=== PATIENT | female | born 1955 | race Caucasian/White ===

== ENCOUNTER 2016-09-02 12:33 | Emergency (ER) | payer OTHER ==
[~2016-09-02] VITALS: Ht 167.6 cm; Wt 142.9 kg
[~2016-09-02 12:33] MED LIST: COLCRYS0.6 M1 PO; CRESTOR20 MG PO; DOXYCYCLINE HY100 MG PO; GEMFIBROZIL600 M1 OR; K-DUR 20MEQ TA20 MEQ PO; METOPROLOL SUCC50 M2 PO; NORCO 325 MG-101 TAB PO; POTASSIUM CHLO10 ME1 PO; SALSALATE750 MG OR; SYNTHROID0.15 M1 NG; VERAPAMIL HCL240 M1 PO; VITAMIN D1000 IU PO
--- OUTSIDE RECORDS SUMMARY | 2016-09-02 12:38 | External Medical Summary Rpt ---
Author Author NAT Aguilar, NAT Aguilar Organization [employer] Address Unknown Phone Unavailable
--- OUTSIDE RECORDS SUMMARY | 2016-09-02 12:38 | External Medical Summary Rpt ---
Author Author MIGUE [place] Organization [facility] Address Unknown Phone Unavailable Care Team Providers Care Caustics Loader Name Role Phone Gwen WHALEN PCP [phone] Encounter MIGUE THOMASON [id number] Date(s): 03/12/16 - 04/02/16 [facility] [address] [place] [address] Discharge Diagnosis: Weakness Discharge Disposition: IP Self Care / Home Attending Physician: RADHA MONTIEL MD Admitting Physician: RADHA MONTIEL MD Referring Physician: RADHA MONTIEL MD Reason for Visit UNILATERAL PRIMARY OSTEOARTHRITIS, RIGHT HIP Vital Signs Most recent 1 2 3 to oldest [Reference Range]: Temperature Oral Oral Oral Source (04/02/16 3:39 PM) (04/02/16 7:00 AM) (04/02/16 3:52 AM) Temperature Fahrenheit Fahrenheit Fahrenheit Mode (04/02/16 3:39 PM) (04/02/16 7:00 AM) (04/02/16 3:52 AM) Temperature, 98.1 Deg F 98.5 Deg F 98.3 Deg F Fahrenheit (04/02/16 3:39 PM) (04/02/16 7:00 AM) (04/02/16 3:52 AM) [96.8-99.7 Deg F] Clinical 36.7 Deg C 36.9 Deg C 36.8 Deg C Temperature, (04/02/16 3:39 PM) (04/02/16 7:00 AM) (04/02/16 3:52 AM) C Pulse Method Non-Invasive BP Device (04/01/16 9:45 AM) Heart Rate, 90 bpm (04/01/16 Apical 10:36 PM) [60-100 bpm] Peripheral 77 bpm 68 bpm Pulse Rate (04/01/16 9:45 AM) (03/24/16 2:57 PM) [60-100 bpm] Heart Rate 64 bpm 70 bpm 80 bpm Monitored (04/02/16 3:39 PM) (04/02/16 7:00 AM) (04/02/16 3:52 AM) [60-100 bpm] Respiratory 16 Breaths/Min 15 Breaths/Min 16 Breaths/Min Rate [14-20 (04/02/16 3:39 PM) (04/02/16 7:00 AM) (04/02/16 3:52 AM) Breaths/Min] Blood Arm, left upper Pressure (04/01/16 9:45 AM) Location Blood Non-Invasive BP Pressure Device (04/01/16 Source 9:45 AM) Blood Sitting Pressure (04/01/16 9:45 AM) Position Blood 133/65 mmHg 144/65 mmHg 115/75 mmHg Pressure (04/02/16 3:39 PM) *HI* (04/02/16 3:52 AM) [90-140/60-9 (04/02/16 7:00 AM) 0 mmHg] Mean 84 93 (04/01/16 11:42 85 Arterial (04/02/16 3:52 AM) PM) (04/01/16 8:30 PM) Pressure (MAP)-BMDI Oxygen 96 % 96 % 97 % Saturation (04/02/16 3:39 PM) (04/02/16 7:00 AM) (04/02/16 3:52 AM) [94-100 %] Oxygen Room air Nasal cannula Nasal cannula Therapy Mode (04/02/16 7:00 AM) (04/01/16 3:20 PM) (04/01/16 2:35 PM) Oxygen Flow 2 Liter/Min 3 Liter/Min 2 Liter/Min Rate (04/01/16 3:20 PM) (04/01/16 2:35 PM) (04/01/16 2:20 PM) Problem List Condition Effective Status Health Informant Dates Status Right hip Active pain(Confirm ed) DDD Active patient (degenerativ e disc disease), lumbar(Confi rmed) Gout(Confirm Active ed) HTN Active (hypertensio n)(Confirmed ) Hypothyroidi Active sm(Confirmed ) Lower back Active patient pain(Confirm ed) H/O Active patient Depression(C onfirmed) Obesity(Conf Active patient irmed) Osteoarthrit Active is(Confirmed ) Frequent Active UTI(Confirme d) Snores(Confi Active patient rmed) Allergies, Adverse Reactions, Alerts Substance Reaction Severity Status NSAIDs Active statins Muscle weakness-general Active sulfa drugs Hives Active Medications allopurinol (allopurinol 300 mg oral tablet) 1 Tab, Oral, Every Day, Refills: 0 aspirin 81 mg, Oral, Every Day, Refills: 0 cholecalciferol (Vitamin D3 1000 intl units oral tablet)3 Tab, Oral, Every Day, Refills: 0 cinnamon 1,000 mg, Oral, Every Day, Refills: 0 colchicine (colchicine 0.6 mg oral capsule) 1 Cap, Oral, Every Day, Refills: 0 cranberry (Cranberry oral tablet) 1 Tab, Oral, Every Day, Refills: 0 cyanocobalamin (Vitamin B12) 2,500 mcg, Oral, Every Day, Refills: 0 docusate (Colace 100 mg oral capsule) 1 Cap, Oral, Two Times A Day, Refills: 0 hydrochlorothiazide-spironolactone (hydrochlorothiazide-spironolactone 25 mg-25 mg oral tablet)2 Tab, Oral, Every Day, Refills: 0 levothyroxine (Synthroid 125 mcg (0.125 mg) oral tablet)1 Tab, Oral, Every Day, Refills: 0 metoprolol (Metoprolol Tartrate 50 mg oral tablet)1.5 Tab, Oral, At Bedtime, Refills: 0 morphine (MS Contin)15 mg, Oral, Interval Every 12 Hours, Refills: 0 nitrofurantoin (Macrobid 100 mg oral capsule) 1 Cap, Oral, Two Times A Day potassium chloride (potassium chloride 20 mEq oral tablet, extended release)1 Tab, Oral, Two Times A Day, Refills: 0 salsalate (salsalate 750 mg oral tablet) 2 Tab, Oral, Two Times A Day, Refills: 0 ubiquinone (CoQ10) 100 mg, Oral, Every Day, Refills: 0 verapamil (verapamil 240 mg/24 hours oral tablet, extended release)2 Tab, Oral, At Bedtime, Refills: 0 Results GENERAL CHEMISTRY Most recent 1 2 3 to oldest [Reference Range]: Sodium Level 141 mmol/L 142 mmol/L [136-145 (04/02/16 5:48 AM) (04/01/16 4:27 PM) mmol/L] Potassium 4.5 mmol/L 4.2 mmol/L Level (04/02/16 5:48 AM) (04/01/16 4:27 PM) [3.5-5.1 mmol/L] Chloride 105 mmol/L 104 mmol/L Level (04/02/16 5:48 AM) (04/01/16 4:27 PM) [98-107 mmol/L] Carbon 23 mmol/L 25 mmol/L Dioxide (04/02/16 5:48 AM) (04/01/16 4:27 PM) Level [21-32 mmol/L] Anion Gap 18 17 (04/01/16 4:27 [9-20] (04/02/16 5:48 AM) PM) Glucose 151 mg/dL 178 mg/dL Level *HI* *HI*(04/01/16 4:27 [74-106 (04/02/16 5:48 AM) PM) mg/dL] Blood Urea 27 mg/dL 22 mg/dL Nitrogen *HI* *HI*(04/01/16 4:27 [7-18 mg/dL] (04/02/16 5:48 AM) PM) Creatinine 1.53 mg/dL 1.66 mg/dL 1.67 mg/dL Level *HI* *HI* *HI*(04/01/16 4:27 [0.55-1.02 (04/02/16 2:02 PM) (04/02/16 5:48 AM) PM) mg/dL] eGFR 42 mL/min/1.73m2 38 mL/min/1.73m2 38 mL/min/1.73m2 [>=60 *LOW* *LOW* *LOW*(04/01/16 mL/min/1.73m (04/02/16 2:02 PM) (04/02/16 5:48 AM) 4:27 PM) 2] eGFR 34 mL/min/1.73m2 31 mL/min/1.73m2 31 mL/min/1.73m2 NonAfrican *LOW* *LOW* *LOW*(04/01/16 [>=60 (04/02/16 2:02 PM) (04/02/16 5:48 AM) 4:27 PM) mL/min/1.73m 2] Bun/Creatini 16.3 13.2 (04/01/16 ne (04/02/16 5:48 AM) 4:27 PM) [8.0-20.0] Calcium 8.6 mg/dL 8.9 mg/dL Level (04/02/16 5:48 AM) (04/01/16 4:27 PM) [8.5-10.1 mg/dL] HEMATOLOGY Most recent 1 2 3 to oldest [Reference Range]: Hgb 13.2 Gram/dL 15.1 Gram/dL [11.2-15.7 (04/02/16 5:48 AM) (04/01/16 1:57 PM) Gram/dL] Hct 39.3 % 44.5 % (04/01/16 [34.1-44.9 (04/02/16 5:48 AM) 1:57 PM) %] URINALYSIS Most recent 1 2 3 to oldest [Reference Range]: Urine Type U CleanCatch (03/24/16 2:55 PM) Urine Type. U CleanCatch *NA*(04/01/16 9:26 AM) Urine Color DK YELLOW Yellow *NA*(04/01/16 9:26 *NA*(03/24/16 2:55 AM) PM) Urine Cloudy Cloudy Appearance *ABN*(04/01/16 *ABN*(03/24/16 9:26 AM) 2:55 PM) Urine 1.018 (04/01/16 1.016 (03/24/16 Specific 9:26 AM) 2:55 PM) [place] [1.005-1.030 ] Urine pH 5.0 *LOW*(04/01/16 5.5 *LOW*(03/24/16 Dipstick 9:26 AM) 2:55 PM) [6.0-8.0] (04/01/16 9:26 AM) (03/24/16 2:55 PM) Urine Moderate Moderate Leukocyte *ABN*(04/01/16 *ABN*(03/24/16 Esterase 9:26 AM) 2:55 PM) [Negative] Urine Negative (04/01/16 Negative (03/24/16 Nitrite 9:26 AM) 2:55 PM) [Negative] Urine Trace Negative (03/24/16 Protein *ABN*(04/01/16 2:55 PM) Dipstick 9:26 AM) [Negative] Urine Negative (04/01/16 Negative (03/24/16 Glucose 9:26 AM) 2:55 PM) Dipstick [Negative] Urine Negative (04/01/16 Negative (03/24/16 Ketones 9:26 AM) 2:55 PM) Dipstick [Negative] Urine 0.2 EU/dL 0.2 EU/dL Urobilinogen (04/01/16 9:26 AM) (03/24/16 2:55 PM) Dipstick Urine Negative (04/01/16 Negative (03/24/16 Bilirubin 9:26 AM) 2:55 PM) Dipstick [Negative] Urine Blood Negative (04/01/16 Negative (03/24/16 Dipstick 9:26 AM) 2:55 PM) [Negative] Ur RBC [None None Seen Seen] (03/24/16 2:55 PM) Ur WBC [None 50-100 /HPF 20-50 /HPF Seen /HPF] *ABN*(04/01/16 *ABN*(03/24/16 9:26 AM) 2:55 PM) Ur WBC Present Clumps *ABN*(04/01/16 9:26 AM) Ur Bacteria 4+ *ABN*(04/01/16 2+ *ABN*(03/24/16 [None Seen] 9:26 AM) 2:55 PM) (04/01/16 9:26 AM) (03/24/16 2:55 PM) Ur 10-20 /HPF Epithelial *ABN*(03/24/16 Cells [None 2:55 PM) Seen /HPF] Ur Squamous 10-20 /HPF Epithelial *ABN*(04/01/16 Cells 9:26 AM) Ur Hyaline 5-10 /LPF Casts *ABN*(04/01/16 9:26 AM) Ur Yeast Trace (03/24/16 2:55 PM) Ur Yeast, 1+ *ABN*(04/01/16 Hyphae 9:26 AM) (04/01/16 9:26 AM) BLOOD BANK Most recent 1 2 3 to oldest [Reference Range]: ABO/Rh O POS *Unknown*(04/01/16 10:20 AM) ABO/Rh O POS Repeat *Unknown*(04/01/16 10:21 AM) Antibody Negative ABSC Screen (04/01/16 10:20 (Tube) AM) Microbiology Reports TEST: Urine Culture STATUS: Order in Progress BODY SITE: SOURCE: Urine, Clean Catch COLLECTED DATE/TIME: 04/01/16 9:26 AMPRELIMINARY REPORTNo growth Immunizations No data available for this section Procedures Procedure Date Related Body Site Diagnosis appy Social History Social History Response Type Smoking Status Never smoker Assessment and Plan Extracted from: Title: YZ Progress Author: RADHA MONTIEL, Date: 04/02/16 Note MD Subjective Chief complaint. better today had PT pain is controlled not in distress Health StatusAllergies:Allergic Reactions (Selected)Severity Not DocumentedNSAIDs- No reactions were documented.Statins- Muscle weakness-general.Sulfa drugs- Hives.,Allergies (3) ActiveReactionNSAIDsNone DocumentedstatinsMuscle weakness-generalsulfa drugsHivesCurrent medications: (Selected)Inpatient MedicationsOrderedBenadryl: 12.5 mg, Oral, At Bedtime, PRN: InsomniaBenadryl: 25 mg, Oral, Q4H, PRN: ItchingCoenzyme Q10: 100 mg, Oral, At BedtimeColace: 100 mg, Oral, BIDDextrose 5% in Lactated Ringers Injection 1,000 mL: 125 mL/Hr, IntraVENousDilaudid: 0.5 mg, IV Push, Q4H, PRN: Pain (Severe 7-10)DuoNeb 0.5 mg-2.5 mg/3 mL inhalation solution: 3 mL, Nebulized Inhalation, Q6H, PRN: Shortness of BreathMS Contin: 15 mg, Oral, C09AHvbUzuhxqyn: 100 mg, Oral, BIDProtonix: 40 mg, Oral, DailySenokot S: 2 Tab, Oral, At BedtimeSynthroid: 125 mcg, Oral, DailyTylenol: 1,000 mg, Oral, D1JHqfJmrvtkd: 650 mg, Oral, Q4H, PRN: Other (See Comment)Vitamin B12: 2,500 mcg, Oral, DailyVitamin D3: 3,000 Units, Oral, DailyZofran: 4 mg, IV Push, Q4H, PRN: NauseaZofran: 4 mg, IV Push, Q8H, PRN: Nauseaallopurinol: 300 mg, Oral, Dailyaspirin: 81 mg, Oral, BIDbisacodyl: 10 mg, Rectal, 1-Time, PRN: Constipationcolchicine: 0.6 mg, Oral, DailyhydrALAZINE: 10 mg, IV Push, Q6H, PRN: Hypertensionhydrochlorothiazide: 25 mg, Oral, Dailymetoclopramide: 5 mg, IV Push, Q4H, PRN: Nausea/Vomitingmetoprolol tartrate: 75 mg, Oral, At Bedtimemultivitamin: 1 Tab, Oral, Dailynaloxone: 0.1 mg, IV Push, Q5Min, PRN: OversedationoxyCODONE: 10 mg, Oral, Q4H, PRN: Pain (Severe 7-10)oxyCODONE: 5 mg, Oral, Q4H, PRN: Pain (Moderate 4-6)potassium chloride 20 mEq oral tablet, extended release: 20 mEq, 1 Tab, Oral, BIDsenna: 8.6 mg, Oral, At Bedtime, PRN: Constipationspironolactone: 25 mg, Oral, Dailyverapamil: 480 mg, Oral, At BedtimeDocumented LtuffaixdaeJkuescuaqyMwA17: 100 mg, Oral, Daily, 0 Refill(s)Colace 100 mg oral capsule: 1 Cap, Oral, BID, 0 Refill(s)Cranberry oral tablet: 1 Tab, Oral, Daily, 0 Refill(s)MS Contin: 15 mg, Oral, [id number], 0 Refill(s)Macrobid 100 mg oral capsule: 1 Cap, Oral, BIDMetoprolol Tartrate 50 mg oral tablet: 1.5 Tab, Oral, At Bedtime, 0 Refill(s)Synthroid 125 mcg (0.125 mg) oral tablet: 1 Tab, Oral, Daily, 0 Refill(s)Vitamin B12: 2,500 mcg, Oral, Daily, 0 Refill(s)Vitamin D3 1000 intl units oral tablet: 3 Tab, Oral, Daily, 0 Refill(s)allopurinol 300 mg oral tablet: 1 Tab, Oral, Daily, 0 Refill(s)aspirin: 81 mg, Oral, Daily, 0 Refill(s)cinnamon: 1,000 mg, Oral, Daily, 0 Refill(s)colchicine 0.6 mg oral capsule: 1 Cap, Oral, Daily, 0 Refill(s)hydrochlorothiazide-spironolactone 25 mg-25 mg oral tablet: 2 Tab, Oral, Daily, 0 Refill(s)potassium chloride 20 mEq oral tablet, extended release: 1 Tab, Oral, BID, 0 Refill(s)salsalate 750 mg oral tablet: 2 Tab, Oral, BID, 0 Refill(s)verapamil 240 mg/24 hours oral tablet, extended release: 2 Tab, Oral, At Bedtime, 0 Refill(s),Home Medications (17) Activeallopurinol 300 mg oral tablet 300 mg = 1 Tab, Oral, Dailyaspirin 81 mg, Oral, Dailycinnamon 1,000 mg, Oral, DailyColace 100 mg oral capsule 100 mg = 1 Cap, Oral, BIDcolchicine 0.6 mg oral capsule 0.6 mg = 1 Cap, Oral, YdjixFtI06 100 mg, Oral, DailyCranberry oral tablet 1 Tab, Oral, Dailyhydrochlorothiazide-spironolactone 25 mg-25 mg oral tablet 2 Tab, Oral, DailyMacrobid 100 mg oral capsule 100 mg = 1 Cap, Oral, BIDMetoprolol Tartrate 50 mg oral tablet 75 mg = 1.5 Tab, Oral, At BedtimeMS Contin 15 mg = 1 Tab, Oral, U18VAghperqsxhdj chloride 20 mEq oral tablet, extended release 20 mEq = 1 Tab, Oral, BIDsalsalate 750 mg oral tablet 1,500 mg = 2 Tab, Oral, BIDSynthroid 125 mcg (0.125 mg) oral tablet 125 mcg = 1 Tab, Oral, Dailyverapamil 240 mg/24 hours oral tablet, extended release 2 Tab, Oral, At BedtimeVitamin B12 2,500 mcg, Oral, DailyVitamin D3 1000 intl units oral tablet 3,000 Int Units = 3 Tab, Oral, Daily,Medications (34) ActiveScheduled: (19)acetaminophen 500 mg tab 1,000 mg 2 Tab, Oral, I5ZJegeflyakwiihr 300 mg tab 300 mg 1 Tab, Oral, Dailyaspirin EC 81 mg tab 81 mg 1 Tab, Oral, BIDcholecalciferol 1,000 int unit tab 3,000 Units 3 Tab, Oral, Dailycolchicine 0.6 mg tab 0.6 mg 1 Tab, Oral, Dailycyanocobalamin 1,000 mcg tab 2,500 mcg 2.5 Tab, Oral, Dailydocusate sodium 100 mg cap 100 mg 1 Cap, Oral, BIDhydrochlorothiazide 25 mg tab 25 mg 1 Tab, Oral, Dailylevothyroxine 125 mcg tab 125 mcg 1 Tab, Oral, Dailymetoprolol tartrate 25 mg tab 75 mg 3 Tab, Oral, At Bedtimemorphine SR 15 mg tab 15 mg 1 Tab, Oral, R70WXbgjqutsnsk vitamin (Thera) tab 1 Tab, Oral, Dailynitrofurantoin macro-mono 100 mg cap 100 mg 1 Cap, Oral, BIDpantoprazole EC 40 mg tab 40 mg 1 Tab, Oral, Dailypotassium chloride CR 20 mEq tab 20 mEq 1 Tab, Oral, BIDsenna/docusate 8.6/50 mg tab 2 Tab, Oral, At Bedtimespironolactone 25 mg tab 25 mg 1 Tab, Oral, Dailyubiquinone 50 mg Cap 100 mg 2 Cap, Oral, At Bedtimeverapamil ER24 120 mg cap 480 mg 4 Cap, Oral, At BedtimeContinuous: (1)D5/LR 1,000 mL 1,000 mL, IntraVENous, 125 mL/HrPRN: (14)acetaminophen 325 mg tab 650 mg 2 Tab, Oral, P2Ucmdrddxav-egzotntzjpu inh 3 mL 3 mL, Nebulized Inhalation, O0Bgvxlbhqlh 10 mg supp 10 mg 1 Supp, Rectal, 1-TimediphenhydrAMINE 25 mg tab 25 mg 1 Tab, Oral, Z1ZrzpowfprdjKVPXB 25 mg tab 12.5 mg 0.5 Tab, Oral, At BedtimehydrALAZINE 20 mg/1 mL inj 10 mg 0.5 mL, IV Push, T4IGNGJVfmqdqbjr 1 mg/1 mL inj 0.5 mg 0.5 mL, IV Push, A4Zwjxfxviizjwhjb 10 mg/2 mL inj 5 mg 1 mL, IV Push, S4Buibjlfiy 0.4 mg/1 mL inj 0.1 mg 0.25 mL, IV Push, I9Zavsbdlccvdtqb 4 mg/2 mL inj 4 mg 2 mL, IV Push, S6Sehhxgwlwyht 4 mg/2 mL inj 4 mg 2 mL, IV Push, H7AczxRLSCGV 5 mg tab 5 mg 1 Tab, Oral, R3QgdlGTBSSM 5 mg tab 10 mg 2 Tab, Oral, U5Ncojth 8.6 mg tab 8.6 mg 1 Tab, Oral, At BedtimeProblem list:MedicalFrequent UTI / SNOMED CT 755360357 / ConfirmedOsteoarthritis / SNOMED CT 9994981848 / ConfirmedHypothyroidism / SNOMED CT 649561601 / ConfirmedHTN (hypertension) / SNOMED CT 3447877085 / ConfirmedGout / SNOMED CT 229988525 / ConfirmedRight hip pain / SNOMED CT 7076057335 / Confirmed,Active Problems (11)DDD (degenerative disc disease), lumbar Frequent UTI Gout H/O Depression HTN (hypertension) Hypothyroidism Lower back pain Obesity Osteoarthritis Right hip pain Snores colchicine 0.6 mg tab 0.6 mg 1 Tab, Oral, Daily cyanocobalamin 1,000 mcg tab 2,500 mcg 2.5 Tab, Oral, Daily docusate sodium 100 mg cap 100 mg 1 Cap, Oral, BID hydrochlorothiazide 25 mg tab 25 mg 1 Tab, Oral, Daily levothyroxine 125 mcg tab 125 mcg 1 Tab, Oral, Daily metoprolol tartrate 25 mg tab 75 mg 3 Tab, Oral, At Bedtime morphine SR 15 mg tab 15 mg 1 Tab, Oral, U43XVob multiple vitamin (Thera) tab 1 Tab, Oral, Daily nitrofurantoin macro-mono 100 mg cap 100 mg 1 Cap, Oral, BID pantoprazole EC 40 mg tab 40 mg 1 Tab, Oral, Daily potassium chloride CR 20 mEq tab 20 mEq 1 Tab, Oral, BID senna/docusate 8.6/50 mg tab 2 Tab, Oral, At Bedtime spironolactone 25 mg tab 25 mg 1 Tab, Oral, Daily ubiquinone 50 mg Cap 100 mg 2 Cap, Oral, At Bedtime verapamil ER24 120 mg cap 480 mg 4 Cap, Oral, At Bedtime Continuous: (1) D5/LR 1,000 mL 1,000 mL, IntraVENous, 125 mL/Hr PRN: (14) acetaminophen 325 mg tab 650 mg 2 Tab, Oral, Q4H albuterol-ipratropium inh 3 mL 3 mL, Nebulized Inhalation, Q6H bisacodyl 10 mg supp 10 mg 1 Supp, Rectal, 1-Time diphenhydrAMINE 25 mg tab 25 mg 1 Tab, Oral, Q4H diphenhydrAMINE 25 mg tab 12.5 mg 0.5 Tab, Oral, At Bedtime hydrALAZINE 20 mg/1 mL inj 10 mg 0.5 mL, IV Push, Q6H HYDROmorphone 1 mg/1 mL inj 0.5 mg 0.5 mL, IV Push, Q4H metoclopramide 10 mg/2 mL inj 5 mg 1 mL, IV Push, Q4H naloxone 0.4 mg/1 mL inj 0.1 mg 0.25 mL, IV Push, Q5Min ondansetron 4 mg/2 mL inj 4 mg 2 mL, IV Push, Q8H ondansetron 4 mg/2 mL inj 4 mg 2 mL, IV Push, Q4H oxyCODONE 5 mg tab 5 mg 1 Tab, Oral, Q4H oxyCODONE 5 mg tab 10 mg 2 Tab, Oral, Q4H senna 8.6 mg tab 8.6 mg 1 Tab, Oral, At Bedtime Problem list: Medical Frequent UTI / SNOMED CT 401887040 / Confirmed Osteoarthritis / SNOMED CT 6223854056 / Confirmed Hypothyroidism / SNOMED CT 162120396 / Confirmed HTN (hypertension) / SNOMED CT 4766888007 / Confirmed Gout / SNOMED CT 049132181 / Confirmed Right hip pain / SNOMED CT 1672947805 / Confirmed, Active Problems (11) DDD (degenerative disc disease), lumbar Frequent UTI Gout H/O Depression HTN (hypertension) Hypothyroidism Lower back pain Obesity Osteoarthritis Right hip pain Snores ObjectiveVS/MeasurementsVitals Signs (last 24 hrs) Last Charted Minimum MaximumTemp 98.5 (APR 02 07:00)97.5 (APR 01 15:20)98.4 (APR 01 13:44)Apical HR 90 (APR 01 22:36)90 (APR 01 22:36)90 (APR 01 22:36)Mon HR 70 (APR 02 07:00)70 (APR 02 07:00)115 (APR 01 13:44)Resp Rate 15 (APR 02 07:00)15 (APR 01 14:05)18 (APR 01 13:44)SBP H 144 (APR 02 07:00)115 (APR 02 03:52)H 192 (APR 01 13:50)DBP 65 (APR 02 07:00)65 (APR 02 07:00)90 (APR 01 13:50)MAP 84 (APR 02 03:52)84 (APR 02 03:52)127 (APR 01 13:50)SpO2 96 (APR 02 07:00)L 92 (APR 01 14:10)97 (APR 01 23:42)General: Alert and oriented, No acute distress.Eye: Pupils are equal, round and reactive to light, Normal conjunctiva, Vision unchanged.HENT: Normocephalic, Normal hearing, Oral mucosa is moist.Neck: Supple, Non-tender.Respiratory: Lungs are clear to auscultation, Respirations are non-labored, Breath sounds are equal.Cardiovascular: Normal rate, Regular rhythm.Gastrointestinal: Soft, Non-tender, Non-distended.Genitourinary: No costovertebral angle tenderness.Musculoskeletal: No swelling, No deformity.Integumentary: Warm, Dry.Neurologic: Alert, Oriented, Normal sensory, Cranial Nerves II-XII are grossly intact.Psychiatric: Cooperative, Appropriate mood & affect, Normal judgment. Neurologic: Alert, Oriented, Normal sensory, Cranial Nerves II-XII are grossly intact. Psychiatric: Cooperative, Appropriate mood & affect, Normal judgment. Results Review APR 02 05:48 141 | 105 | H 27 / H 151 4.5 | 23 | H 1.66 \\ APR 02 05:48 141 | 105 | H 27 / H 151 4.5 | 23 | H 1.66 \\ Impression and Plan 1. Status post right hip replacement. surgery done. Pain is controlled. 2. History of recurrent urinary tract infection. Urine culture ordered. We will wait for culture results. 3. Hypertension. hydralazine as needed. 4. History of hypothyroidism, on levothyroxine, to be continued. 5. Gastrointestinal prophylaxis, Protonix. 6. Deep venous thrombosis prophylaxis, compression boot. plan Home today Follow up outpatient time spent 40 min Extracted from: Title: Progress/SOAP Author: JUAN, Date: 04/02/16 Note BRIAN, CRISTINE Assessment/Plan Unilateral primary osteoarthritis, right hipM16.11, Unilateral primary osteoarthritis, right hipM16.11 1. Increase fluids, recheck Cr. if trending towards baseline ok to discharge home today 2. 25lbs WB on operative leg 3. stressed the importance of laying flat with belly off of incision to help with healing Hospital Discharge Instructions Patient EducationTotal Hip Replacement, Care After, Ecoh-vg-Jovs Total Hip Replacement, Pdqt-ky-Iiqw"
--- OUTSIDE RECORDS SUMMARY | 2016-09-02 12:38 | External Medical Summary Rpt ---
Demographics Preferred Language Citizen [place] Marital Status Unknown Confucianism Affiliation Unknown Race Unknown Ethnic Group Unknown Author Author , Organization [employer] Address Unknown Phone Unavailable Purpose Continuity of Care Document - through 2016 Immunization No patient found.
--- OUTSIDE RECORDS SUMMARY | 2016-09-02 12:38 | External Medical Summary Rpt ---
Author Author MIGUE [place] Organization [facility] Address Unknown Phone Unavailable Care Team Providers Care Felt Pad Cutter Name Role Phone Gwen WHALEN PCP [phone] Encounter MIGUE THOMASON [id number] Date(s): 03/12/16 - 04/02/16 [facility] [address] [place] [place] [address]- Discharge Diagnosis: Weakness Discharge Disposition: IP Self [...] 1.016 (03/24/16 Specific 9:26 AM) 2:55 PM) [place] [1.005-1.030 ] Urine pH 5.0 *LOW*(04/01/16 5.5 [...] Shortness of BreathMS Contin: 15 mg, Oral, F25TIdgKiyxthfj: 100 mg, Oral, BIDProtonix: 40 mg, Oral, DailySenokot S: 2 Tab, Oral, At BedtimeSynthroid: 125 mcg, Oral, DailyTylenol: 1,000 mg, Oral, D1VUqoTngafdj: 650 mg, Oral, Q4H, PRN: Other (See [...] Oral, Dailyverapamil: 480 mg, Oral, At BedtimeDocumented TjwyetooagnAuliceghhmUnU47: 100 mg, Oral, Daily, 0 Refill(s)Colace 100 mg oral capsule: 1 Cap, Oral, BID, 0 Refill(s)Cranberry oral tablet: 1 Tab, Oral, Daily, 0 Refill(s)MS Contin: 15 mg, Oral, W56CIsq, 0 Refill(s)Macrobid 100 mg oral capsule: 1 [...] capsule 0.6 mg = 1 Cap, Oral, FkdqmQkP59 100 mg, Oral, DailyCranberry oral tablet 1 Tab, Oral, Dailyhydrochlorothiazide-spironolactone 25 mg-25 mg oral tablet 2 Tab, Oral, DailyMacrobid 100 mg oral capsule 100 mg = 1 Cap, Oral, BIDMetoprolol Tartrate 50 mg oral tablet 75 mg = 1.5 Tab, Oral, At BedtimeMS Contin 15 mg = 1 Tab, Oral, C61GJtoxzoslqlkn chloride 20 mEq oral tablet, extended release [...] mg tab 1,000 mg 2 Tab, Oral, T2FZbsmjtwngzbmeu 300 mg tab 300 mg 1 Tab, [...] mg tab 15 mg 1 Tab, Oral, H18AUxlzetqcihb vitamin (Thera) tab 1 Tab, Oral, Dailynitrofurantoin [...] mg tab 650 mg 2 Tab, Oral, Z1Qvflyebntx-quarbljiurm inh 3 mL 3 mL, Nebulized Inhalation, E9Ollyxmgfeg 10 mg supp 10 mg 1 Supp, Rectal, 1-TimediphenhydrAMINE 25 mg tab 25 mg 1 Tab, Oral, W2TgeoypkvrzdIUXRV 25 mg tab 12.5 mg 0.5 Tab, Oral, At BedtimehydrALAZINE 20 mg/1 mL inj 10 mg 0.5 mL, IV Push, P6PCIWCPetusspqq 1 mg/1 mL inj 0.5 mg 0.5 mL, IV Push, L7Dkettieocdshour 10 mg/2 mL inj 5 mg 1 mL, IV Push, B4Zuykgkvhk 0.4 mg/1 mL inj 0.1 mg 0.25 mL, IV Push, H5Wajxaovwmqbsbh 4 mg/2 mL inj 4 mg 2 mL, IV Push, I3Pqilbpucvrmw 4 mg/2 mL inj 4 mg 2 mL, IV Push, A9KjmdPAXSLY 5 mg tab 5 mg 1 Tab, Oral, W7SuatTSKOWJ 5 mg tab 10 mg 2 Tab, Oral, M8Jsntms 8.6 mg tab 8.6 mg 1 Tab, Oral, At BedtimeProblem list:MedicalFrequent UTI / SNOMED CT 548150653 / ConfirmedOsteoarthritis / SNOMED CT 9719550418 / ConfirmedHypothyroidism / SNOMED CT 846665702 / ConfirmedHTN (hypertension) / SNOMED CT 4949841653 / ConfirmedGout / SNOMED CT 105835388 / ConfirmedRight hip pain / SNOMED CT 3043638979 / Confirmed,Active Problems (11)DDD (degenerative disc disease), [...] mg tab 15 mg 1 Tab, Oral, U28IYwr multiple vitamin (Thera) tab 1 Tab, Oral, [...] list: Medical Frequent UTI / SNOMED CT 526655232 / Confirmed Osteoarthritis / SNOMED CT 3352522003 / Confirmed Hypothyroidism / SNOMED CT 387485471 / Confirmed HTN (hypertension) / SNOMED CT 2711053091 / Confirmed Gout / SNOMED CT 772411024 / Confirmed Right hip pain / SNOMED CT 7951501577 / Confirmed, Active Problems (11) DDD (degenerative [...] Instructions Patient EducationTotal Hip Replacement, Care After, Kbyx-bb-Ilqp Total Hip Replacement, Iyvn-to-Shcb"
--- OUTSIDE RECORDS SUMMARY | 2016-09-02 12:38 | External Medical Summary Rpt ---
Author Author [employer] Organization [employer] Address Unknown Phone Unavailable Purpose Continuity of Care Document - through 2016
--- OUTSIDE RECORDS SUMMARY | 2016-09-02 12:38 | External Medical Summary Rpt ---
Demographics Preferred Language Filipino Marital Status Unknown Protestant Affiliation Unknown Race Unknown Ethnic Group Unknown Author Author , Organization [employer] Address Unknown Phone Unavailable Purpose Continuity of Care Document - through 2016 Immunization No patient found.
[2016-09-02 12:59] LABS: URINE BILIRUBIN - DIPSTICK NEGATIVE (NEG); URINE BLOOD SMALL (NEG)
[2016-09-02] MEDS ORDERED: MACROBID100 M3 PO (13:09)
[2016-09-02] MEDS ORDERED: PYRIDIUM100 M2 PO (13:09)
--- NOTE | 2016-09-02 13:09 | Urgent Treatment Center Report ---
History of Present Issue Date/Time Seen by Provider 09/02/16 1259 Visit Reason Pt arrived:Walked Presenting Problem:PT C/O PRESSURE WHEN URINATING AND RUNNING A FEVER FOR THE PAST COUPLE OF DAYS Location if Accident: Onset of symptoms date/time:/ or onset unknown for:MEDICAL HX UNKNOWN Have you (or family members/close friends) recently traveled outside the [place]? N If Yes, where/when: Have you had exposure to infectious disease within the past month? TB? Other? Specify: Patient state that for the last couple of days she has been having urinary freqency along with feeling of pressure and burn when she urinates State that she also has had fever for the past couple of days and thinks it may be associated with UTI. State that she come in today to get checked for UTI ALLERGIES Coded Allergies: sulfisomidine (Mild, 09/02/16) Home Medications Active Scripts Colchicine (Colcrys 0.6MG) 0.6 MG PO DAILY #30 TAB Ref 11 Prov: 08/29/14 POTASSIUM CHL (Potassium Chloride) 20 MEQ PO BID #60 TAB Ref 2 Prov: 08/29/14 Reported Medications Metoprolol Succinate 50 MG PO DAILY #45 Potassium Chloride 10 MEQ PO DAILY #30 Verapamil Hcl (Verapamil ER) 240 MG PO DAILY #60 Rosuvastatin Calcium (Crestor) 20 MG PO QHS #30 Levothyroxine Sod (Synthroid) 0.15 MG NG DAILY #30 HYDROCODONE/ACETAMINOPHEN ([place] 10-325 Tablet) 1 TAB PO Q4HP PRN PAIN Gemfibrozil 600 MG OR QHS #60 Salsalate 750 MG OR BID #120 CHOLECALCIFEROL (VITAMIN D3) (Vitamin D3) 1,000 IUNITS PO DAILY History Medical History General CAD? No Angina: No [place]: No Hypertension? Yes Hyperlipidemia? Yes CHF? No COPD? No Asthma? No Anemia? No Hernia? No Thyroid Problems? Yes Hypothyroidism? No CVA? No Seizures? No Diabetes? No UTI? No Stones? No GB Disease: No Nephritic Syndrome? No Asplenia? No Hepatitis? No Sickle Cell Disease? No Arthritis? Yes Cataracts? No Glaucoma? No MRSA? No TB? No Cancer? No Immunization HX DT/Tetanus Unknown Flu 2013-FSN Pneumonia Received In Past Surgical Hx Previous Surgery?Y Appendix Tonsils And/Or Adenoids Family History Family HX Diabetes Yes CAD No Hypertension Yes Hyperlipidemia Yes Cancer Yes TB No Social History Smoking Hx Smoker: Never Smoker Tobacco: No Alcohol Alcohol: No Review of Systems All Other Systems Reviewed and Negative Genitourinary dysuria, frequency, hematuria, pain. denies: abnormal vaginal bleeding, vaginal discharge, pelvic pain. Physical Exam Vital Signs Vital Signs Date Time Temp Pulse Resp B/P Pulse O2 O2 Flow FiO2 Ox Delivery Rate 09/02 1257 97.6 76 16 145/84 98 General Appearance normal appearance, WD/WN, no apparent distress Respiratory Status Yes: trachea midline, chest symmetrical, non tender chest. No: respiratory distress. 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 No Results/Orders Laboratory Tests 09/02/16 1257: Urine Color YELLOW, Urine Appearance CLOUDY, Urine pH 6.0, Ur Specific [place] 1.015, Urine Protein TRACE H, Urine Ketones NEGATIVE, Urine Blood SMALL, Urine Nitrate NEGATIVE, Urine Bilirubin NEGATIVE, Urine Urobilinogen 0.2, Ur Leukocyte Esterase MODERATE, Urine Glucose NEGATIVE Current Medication Orders Sig/Robe Start time Last Medication Dose Route Stop Time Status Admin Ceftriaxone Sodium 1 GM ONCE ONE 09/02 1315 AC IM 09/02 1316 Lidocaine HCl 0 ONCE ONE 09/02 1315 AC IM 09/02 1316 Orders Procedure Date/time Status [facility] URINE DIPSTICK 09/02 1257 Complete Departure Departure Time of Disposition 1307 Disposition DC Home or Self Care(routine) Clinical Impression Primary Impression: UTI (urinary tract infection) Qualifiers: Urinary tract infection type: site unspecified Hematuria presence: with hematuria Qualified Code: N39.0 - Urinary tract infection, site not specified Condition STABLE Referrals Wes Rawls MD (PCP): 3 Days-Call Office if no improvement or worsening of symptoms Patient Instructions DI for Urinary Tract Infection (UTI) Additional Instructions Drink plenty of fluids Follow up with family doctor if needed REturn if needed Wipe from front to back Avoid bubble baths Discharge Counseling Counseled pt/family regarding diagnosis, medications/RX, home care, follow up needs Prescriptions Current Visit Scripts NITROFURANTOIN MONOHYD/M-CRYST (Macrobid 100 MG Capsule) 100 MG PO BID #14 CAP Phenazopyridine HCl (Pyridium) 100 MG PO TID #6 TAB at 0841
--- NOTE | 2016-09-02 13:09 | Urgent Treatment Center Report ---
History of Present Issue Date/Time Seen by Provider 09/02/16 1259 Visit Reason Pt arrived:Walked Presenting Problem:PT C/O PRESSURE WHEN URINATING AND RUNNING A FEVER FOR THE PAST COUPLE OF DAYS Location if Accident: Onset of symptoms date/time:/ or onset unknown for:MEDICAL HX UNKNOWN Have you (or family members/close friends) recently traveled outside the [place]? N If Yes, where/when: Have you had exposure to infectious disease within the past month? TB? Other? Specify: Patient state that for the last couple of days she has been having urinary freqency along with feeling of pressure and burn when she urinates State that she also has had fever for the past couple of days and thinks it may be associated with UTI. State that she come in today to get checked for UTI ALLERGIES Coded Allergies: sulfisomidine (Mild, 09/02/16) Home Medications Active Scripts Colchicine (Colcrys 0.6MG) 0.6 MG PO DAILY #30 TAB Ref 11 Prov: 08/29/14 POTASSIUM CHL (Potassium Chloride) 20 MEQ PO BID #60 TAB Ref 2 Prov: 08/29/14 Reported Medications Metoprolol Succinate 50 MG PO DAILY #45 Potassium Chloride 10 MEQ PO DAILY #30 Verapamil Hcl (Verapamil ER) 240 MG PO DAILY #60 Rosuvastatin Calcium (Crestor) 20 MG PO QHS #30 Levothyroxine Sod (Synthroid) 0.15 MG NG DAILY #30 HYDROCODONE/ACETAMINOPHEN ([place] 10-325 Tablet) 1 TAB PO Q4HP PRN PAIN Gemfibrozil 600 MG OR QHS #60 Salsalate 750 MG OR BID #120 CHOLECALCIFEROL (VITAMIN D3) (Vitamin D3) 1,000 IUNITS PO DAILY History Medical History General CAD? No Angina: No [place]: No Hypertension? Yes Hyperlipidemia? Yes CHF? No COPD? No Asthma? No Anemia? No Hernia? No Thyroid Problems? Yes Hypothyroidism? No CVA? No Seizures? No Diabetes? No UTI? No Stones? No GB Disease: No Nephritic Syndrome? No Asplenia? No Hepatitis? No Sickle Cell Disease? No Arthritis? Yes Cataracts? No Glaucoma? No MRSA? No TB? No Cancer? No Immunization HX DT/Tetanus Unknown Flu 2013-FSN Pneumonia Received In Past Surgical Hx Previous Surgery?Y Appendix Tonsils And/Or Adenoids Family History Family HX Diabetes Yes CAD No Hypertension Yes Hyperlipidemia Yes Cancer Yes TB No Social History Smoking Hx Smoker: Never Smoker Tobacco: No Alcohol Alcohol: No Review of Systems All Other Systems Reviewed and Negative Genitourinary dysuria, frequency, hematuria, pain. denies: abnormal vaginal bleeding, vaginal discharge, pelvic pain. Physical Exam Vital Signs Vital Signs Date Time Temp Pulse Resp B/P Pulse O2 O2 Flow FiO2 Ox Delivery Rate 09/02 1257 97.6 76 16 145/84 98 General Appearance normal appearance, WD/WN, no apparent distress Respiratory Status Yes: trachea midline, chest symmetrical, non tender chest. No: respiratory distress. 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 No Results/Orders Laboratory Tests 09/02/16 1257: Urine Color YELLOW, Urine Appearance CLOUDY, Urine pH 6.0, Ur Specific [place] 1.015, Urine Protein TRACE H, Urine Ketones NEGATIVE, Urine Blood SMALL, Urine Nitrate NEGATIVE, Urine Bilirubin NEGATIVE, Urine Urobilinogen 0.2, Ur Leukocyte Esterase MODERATE, Urine Glucose NEGATIVE Current Medication Orders Sig/Robe Start time Last Medication Dose Route Stop Time Status Admin Ceftriaxone Sodium 1 GM ONCE ONE 09/02 1315 AC IM 09/02 1316 Lidocaine HCl 0 ONCE ONE 09/02 1315 AC IM 09/02 1316 Orders Procedure Date/time Status [facility] URINE DIPSTICK 09/02 1257 Complete Departure Departure Time of Disposition 1307 Disposition DC Home or Self Care(routine) Clinical Impression Primary Impression: UTI (urinary tract infection) Qualifiers: Urinary tract infection type: site unspecified Hematuria presence: with hematuria Qualified Code: N39.0 - Urinary tract infection, site not specified Condition STABLE Referrals Wes Rawls MD (PCP): 3 Days-Call Office if no improvement or worsening of symptoms Patient Instructions DI for Urinary Tract Infection (UTI) Additional Instructions Drink plenty of fluids Follow up with family doctor if needed REturn if needed Wipe from front to back Avoid bubble baths Discharge Counseling Counseled pt/family regarding diagnosis, medications/RX, home care, follow up needs Prescriptions Current Visit Scripts NITROFURANTOIN MONOHYD/M-CRYST (Macrobid 100 MG Capsule) 100 MG PO BID #14 CAP Phenazopyridine HCl (Pyridium) 100 MG PO TID #6 TAB at 4604
[2016-09-02 13:16] VITALS: BP 145/84
== END 2016-09-02 13:17 | disposition home or self-care (01) ==
LOC: UTC 12:33
PROVIDERS: Nurse Practitioner
DX: N39.0 Urinary tract infection, site not specified (principal); I10 Essential (primary) hypertension